=== PATIENT | male | born 1960 | race Caucasian/White ===

== ENCOUNTER 2018-06-29 07:39 | Outpatient (REF) | payer OTHER, SELFPAY ==
[2018-06-29 13:49] LABS: HGB 14.3 g/dL (13.5-17.5); Mean Corpuscular Hemoglobin 30.3 pg (27.0-33.0); Mean Platelet Volume 10.2 fL (8.0-11.0); Platelet Count 361 x1000/uL (130-400); RBC 4.72 m/cumm (4.50-6.00); RBC Distribution Width 12.8 % (11.8-14.1); White Blood Cell Count 6.58 k/cumm (4.4-10.8)
[2018-06-29 13:50] LABS: ALT 74 U/L (12-78); AST 30 U/L (15-37); Albumin 4.1 g/dL (3.4-5.0); Alkaline Phosphatase 72 U/L (46-116); Anion Gap 7.7 mmol/L (3-11); BUN 18 mg/dL (7-18); Bilirubin, Total 0.5 mg/dL (0.2-1.0); CO2 28.3 mmol/L (21.0-32.0); CREATININE 0.86 mg/dL (0.70-1.30); Calcium 9.3 mg/dL (8.5-10.1); Chloride 101 mmol/L (98-107); Glucose 109 mg/dL (70-100); Sodium 137 mmol/L (136-145); Total Protein 6.8 g/dL (6.4-8.2)
[2018-07-02 09:30] LABS: Hepatitis C Ab w Rflx HCV PCR Negative (NEGAT)
== END 2018-06-29 07:59 ==
LOC: NCHCN 07:39
PROVIDERS: PCP Family Medicine; Visit Provider Family Medicine
DX: K76.0 Fatty (change of) liver, not elsewhere classified (principal); I10 Essential (primary) hypertension; Z00.00 Encounter for general adult medical examination without abnormal findings; Z11.59 Encounter for screening for other viral diseases
CPT/HCPCS: 80053; 85027; 86803

== ENCOUNTER 2019-09-03 20:55 | Outpatient (REF) | payer OTHER, SELFPAY ==
[2019-09-03 18:54] LABS: HCT 42.2 % (40.0-50.0); HGB 14.3 g/dL (13.5-17.5); Mean Corp. HGB Concentration 33.9 g/dL (32.0-36.0); Mean Corpuscular Hemoglobin 30.2 pg (27.0-33.0); Mean Corpuscular Volume 89.2 fL (80-95); Platelet Count 329 x1000/uL (130-400); RBC 4.73 m/cumm (4.50-6.00); RBC Distribution Width 12.7 % (11.8-14.1); White Blood Cell Count 5.01 k/cumm (4.4-10.8)
[2019-09-03 19:09] LABS: ALT 131 U/L (16-63); AST 51 U/L (15-37); Albumin 4.3 g/dL (3.4-5.0); Alkaline Phosphatase 83 U/L (46-116); Anion Gap 11.3 mmol/L (3-11); BUN 14 mg/dL (7-18); Bilirubin, Total 0.5 mg/dL (0.2-1.0); CO2 26.7 mmol/L (21.0-32.0); CREATININE 0.81 mg/dL (0.70-1.30); Calculated LDL 99 mg/dL; Chloride 103 mmol/L (98-107); Cholesterol 186 mg/dL (<200); Glucose 97 mg/dL (74-106); HDL Cholesterol 37 mg/dL (40-60); Potassium 3.8 mmol/L (3.5-5.1); Sodium 141 mmol/L (136-145); Total Protein 7.1 g/dL (6.4-8.2); Triglyceride 251 mg/dL (<150)
== END 2019-09-03 21:15 ==
LOC: NCHCN 20:55
PROVIDERS: PCP Family Medicine; Visit Provider Family Medicine
DX: I10 Essential (primary) hypertension (principal); K76.0 Fatty (change of) liver, not elsewhere classified; E78.5 Hyperlipidemia, unspecified
CPT/HCPCS: 80053; 80061; 85027

== ENCOUNTER → 2020-09-08 19:44 | Outpatient (REF) | payer OTHER, SELFPAY ==
[2020-09-08 18:22] LABS: HCT 44.4 % (40.0-50.0); HGB 15.1 g/dL (13.5-17.5); MCH 30.3 pg (27.0-33.0); MPV 9.7 fL (8.0-11.0); Platelet Count 393 10^3/uL (130-400); RBC 4.99 10^6/uL (4.36-5.78); RDW 12.1 % (11.8-14.1); RDW-SD 38.8 fL; WBC 9.16 10^3/uL (4.4-10.8)
[2020-09-08 18:43] LABS: ALT 94 U/L (16-63); AST 37 U/L (15-37); Albumin 4.7 g/dL (3.4-5.0); Alkaline Phosphatase 73 U/L (46-116); BUN 18 mg/dL (7-18); Bilirubin, Total 0.4 mg/dL (0.2-1.0); CREATININE 0.94 mg/dL (0.70-1.30); Calcium 9.9 mg/dL (8.5-10.1); Chloride 98 mmol/L (98-107); Ferritin 932 ng/mL (26-388); Glucose 94 mg/dL (74-106); Potassium 3.9 mmol/L (3.5-5.1); Sodium 137 mmol/L (136-145); TSH (W/Ref FT4) 2.53 uIU/mL (0.36-3.74); Total Protein 7.4 g/dL (6.4-8.2)
[2020-09-08 19:59] LABS: ESR 7 mm/hr (1-20)
[2020-09-10 09:32] LABS: Hepatitis B Surface Ag Negative (Negative)
== END ==
LOC: NCHCN 19:44
PROVIDERS: PCP Family Medicine; Visit Provider Family Medicine
DX: R21 Rash and other nonspecific skin eruption (principal); K76.0 Fatty (change of) liver, not elsewhere classified
CPT/HCPCS: 80053; 85027; 85652; 87340; 82728; 84443

== ENCOUNTER 2020-10-09 02:40 | Outpatient (CLI) | payer OTHER, SELFPAY ==
--- NOTE | 2020-10-09 | DI.US_ITS ---
EXAM: US ABDOMEN CLINICAL HISTORY: FATTY LIVER DISEASE, K76.0,ELEVATED LIVER ENZYMES,METABOLIC SYNDROME TECHNIQUE: Ultrasound abdomen performed using standard protocol. COMPARISON: No exams were available for comparison FINDINGS: LIVER: The liver shows diffusely increased echogenicity and decreased through transmission consistent with fatty infiltration. Posterior portions of the liver are not well seen. A 3.4 centimeter cyst is noted in the left lobe. A question of slight slight nodularity of the liver surface. No masses a re seen. GALLBLADDER: No evidence of cholelithiasis. No evidence of wall thickening. No pericholecystic fluid identified. BRUNNER'S SIGN: Negative. BILIARY SYSTEM: No intrahepatic or extrahepatic biliary ductal dilation. KIDNEYS: Kidneys are symmetric in size. No evidence of renal calculi. No evidence of hydronephrosis. No renal mass or cyst identified. PANCREAS: Normal where visualized. SPLEEN: Not enlarged. ABDOMINAL AORTA AND IVC: Visualized portions normal caliber. ASCITES: None seen. IMPRESSION: Moderate to severe fatty infiltration of the liver. Question of mild nodularity of the liver surface .. Simple cyst left lobe. DATA REPOSITORY:
== END 2020-10-09 02:41 ==
LOC: DI 02:40
PROVIDERS: PCP Family Medicine; Visit Provider Family Medicine
DX: K76.0 Fatty (change of) liver, not elsewhere classified (principal); K76.89 Other specified diseases of liver
CPT/HCPCS: 76700

== ENCOUNTER 2020-10-09 20:18 | Outpatient (REF) | payer OTHER, SELFPAY ==
[2020-10-09 19:48] LABS: Iron 72 ug/dL (65-175); Total Iron Binding Capacity 291 ug/dL (250-450); Transferrin Sat 25 % (20-55)
[2020-10-09 19:56] LABS: ALT 54 U/L (16-63); AST 18 U/L (15-37); Albumin 4.2 g/dL (3.4-5.0); Alkaline Phosphatase 76 U/L (46-116); Bilirubin, Direct 0.08 mg/dL (0.00-0.20); Bilirubin, Total 0.3 mg/dL (0.2-1.0); Total Protein 6.9 g/dL (6.4-8.2)
== END 2020-10-09 20:19 | disposition home or self-care (01) ==
LOC: NCHCN 20:18
PROVIDERS: PCP Family Medicine; Visit Provider Family Medicine
DX: K76.0 Fatty (change of) liver, not elsewhere classified (principal); R78.89 Finding of other specified substances, not normally found in blood
CPT/HCPCS: 80053; 80076; 83540; 83550

== ENCOUNTER 2022-06-10 16:14 | Outpatient (REF) | payer OTHER, SELFPAY ==
[2022-06-10 19:52] LABS: HGB 14.5 g/dL (13.5-17.5); MCHC 33.7 % (32.0-36.0); MCV 89 fL (80-95); MPV 9.5 fL (8.0-11.0); Platelet Count 450 10^3/uL (130-400); RBC 4.84 10^6/uL (4.36-5.78); RDW 12.1 % (11.8-14.1); RDW-SD 39.3 fL; WBC 8.08 10^3/uL (4.4-10.8)
[2022-06-10 20:29] LABS: ALT 109 U/L (16-63); AST 58 U/L (15-37); Albumin 3.8 g/dL (3.4-5.0); Alkaline Phosphatase 82 U/L (46-116); Anion Gap 10.7 mmol/L (3-11); BUN 13 mg/dL (7-18); Bilirubin, Total 0.4 mg/dL (0.2-1.0); CO2 25.3 mmol/L (21.0-32.0); CREATININE 0.8 mg/dL (0.70-1.30); Calcium 9.5 mg/dL (8.5-10.1); Chloride 100 mmol/L (98-107); Estimated GFR 101.32 (mL/min/1.73m2); Ferritin 1517 ng/mL (26-388); Glucose 100 mg/dL (74-106); Potassium 3.7 mmol/L (3.5-5.1); Sodium 136 mmol/L (136-145); Total Protein 7.6 g/dL (6.4-8.2)
== END 2022-06-10 16:15 | disposition home or self-care (01) ==
LOC: NCHCN 16:14
PROVIDERS: PCP Family Medicine; Visit Provider Family Medicine
DX: K76.0 Fatty (change of) liver, not elsewhere classified (principal); R78.89 Finding of other specified substances, not normally found in blood; Z00.00 Encounter for general adult medical examination without abnormal findings
CPT/HCPCS: 80053; 85027; 82728

== ENCOUNTER 2023-03-24 21:14 | Outpatient (REF) | payer OTHER, SELFPAY ==
[2023-03-24 15:41] LABS: HGB 15.7 g/dL (13.5-17.5); MCH 29.1 pg (27.0-33.0); MCHC 34.1 % (32.0-36.0); MCV 85 fL (80-95); MPV 9.6 fL (8.0-11.0); Platelet Count 397 10^3/uL (130-400); RDW 12.1 % (11.8-14.1); RDW-SD 37.7 fL; WBC 7.64 10^3/uL (4.4-10.8)
[2023-03-24 16:06] LABS: ALT 59 U/L (16-63); AST 22 U/L (15-37); Albumin 4.2 g/dL (3.4-5.0); Alkaline Phosphatase 91 U/L (46-116); Anion Gap 11.5 mmol/L (3-11); BUN 14 mg/dL (7-18); Bilirubin, Total 0.7 mg/dL (0.2-1.0); CO2 25.5 mmol/L (21.0-32.0); CREATININE 0.9 mg/dL (0.70-1.30); Calcium 9.1 mg/dL (8.5-10.1); Chloride 104 mmol/L (98-107); Estimated GFR 97.78 (mL/min/1.73m2); Glucose 130 mg/dL (74-106); Potassium 3.3 mmol/L (3.5-5.1); Sodium 141 mmol/L (136-145); Total Protein 7.2 g/dL (6.4-8.2)
== END 2023-03-24 21:15 | disposition home or self-care (01) ==
LOC: NCHCN 21:14
PROVIDERS: PCP Family Medicine; Visit Provider Family Medicine
DX: K76.0 Fatty (change of) liver, not elsewhere classified (principal)
CPT/HCPCS: 80053; 85027